=== PATIENT | female | born 1950 | race African-American/Black ===

== ENCOUNTER 2018-06-07 17:34 | Inpatient (IN) | payer MEDICARE, MEDICAID ==
[2018-06-07] MEDS ORDERED: Nitroglycerin 2% Ointment 1 INCH/1 GM Packet ONE (18:51)
[2018-06-07] MEDS ORDERED: niCARdipine 20MG In NaCl 20 MG/200 ML BAG ONE (18:51)
[2018-06-07 19:08] LABS: Amphetamine Not Detected (NotDetected); Barbiturates Screen Not Detected (NotDetected); Benzodiazepine Screen Not Detected (NotDetected); Cocaine Metabolite Screen Not Detected (NotDetected); Medtox Control Line Valid? VALID (VALID); Medtox Reader # READER 1; Methadone Not Detected (NotDetected); Methamphetamine Not Detected (NotDetected); Opiate Screen Not Detected (NotDetected); Oxycodone Screen Not Detected (NotDetected); Phencyclidine (PCP) Not Detected (NotDetected); THC/Cannabinoid Screen Not Detected (NotDetected); Tricyclic Screen Not Detected (NotDetected)
[2018-06-07] MEDS ORDERED: Ondansetron HCl/PF 4 MG/2 ML Vial IVP PRN (20:24)
[2018-06-07] MEDS ORDERED: Acetaminophen 650 MG Suppository PR PRN (20:24)
[2018-06-07] MEDS ORDERED: Scopolamine 1.5 mg/72 hour Patch TD SCH (21:00)
[2018-06-07 21:26] LABS: Troponin I Less than 0.010 ng/mL (< 0.028)
[2018-06-07 21:28] VITALS: BMI 32.7
[2018-06-07] MEDS: Nitroglycerin 2% Ointment 1 INCH/1 GM Packet TOP SCH (22:03)
[2018-06-07] MEDS: Famotidine/PF 20 mg/2ml Vial SLOW IVP SCH (22:11)
[2018-06-07] MEDS: Dextrose 5 % And 0.9 % NaCl 1,000 ML IV SCH (22:41)
[2018-06-07 23:50] LABS: Troponin I 0.011 ng/mL (< 0.028)
--- NOTE | 2018-06-08 00:19 | CON ---
CHIEF COMPLAINT: Acute stroke. HISTORY OF PRESENT ILLNESS: I was asked to consult the patient because of her aphasia. The patient's daughter and son were in the room. The patient lives in [facility] and then the patient came here to visit her family and had extended her stay. Today, she was at shinto and when she was coming out of the shinto, she was unable to talk well and she dropped her purse. She had right- sided weakness and right facial droop, and according to ER visit notes, they refused tPA in [place] and she was brought here for subsequent care. The patient has had no change in symptoms since this afternoon and continues to have aphasia. The patient's daughter states that she had a prior history of stroke. She did have some residual effects from that stroke including mild expressive aphasia and right-sided weakness. They do not think she fully recovered from that stroke. She also has additional issues including breathing problems and son thought she might have COPD and patient also has issues with her sleep. The daughter said she thinks she might have sleep apnea, because she stops to breathe sometimes at night and snores. Her new symptoms, from this morning, are primarily worsening of her speech and she did have some right- sided weakness, which has improved since arrival to the hospital. She has not had good followup where she lives. She has not gone to the [facility] for her followup care for stroke. The daughter states she thinks she might have an appointment. They also are not sure that she is compliant with her aspirin at home. PREVIOUS MEDICAL HISTORY: Two strokes are localized on the MRI. Her actual symptomatic stroke was 2 years ago with aphasia and right-sided weakness. She recovered from it, but with some residual effect. She has hypertension, hyperlipidemia, gout, and she was scheduled for a procedure for peripheral vascular disease, for stent in her legs and that was canceled this past week or so ago due to increase in her creatinine level to 1.6 according to her daughter. PAST SURGICAL HISTORY: Positive for hysterectomy, tumor removal from her stomach, nasal surgery. SOCIAL HISTORY: Patient did smoke every day until her prior stroke and she was a heavy smoker, but suddenly stopped after that stroke. Daughter thinks it could be due to her loss of taste for smoking at that point. ALLERGIES: She is allergic to ALEVE. FAMILY HISTORY: Positive for stroke in her mother. Mother also had diabetes and hypertension. MEDICATIONS: At home, amlodipine, atorvastatin, and she is on Plavix 75 mg per day, metoprolol 100 mg per day, allopurinol 100 mg per day, lisinopril 40 mg per day, tramadol 50 mg per day. REVIEW OF SYSTEMS: Difficult to obtain from the patient due to her aphasia. PHYSICAL EXAMINATION: VITAL SIGNS: Reviewed ER report, and on arrival, her blood pressure was at 165/ 100. IMAGING: CT results, CT angiography was completed here at about 03:00 in the afternoon, and there is no high-grade stenosis or occlusion of the arterial system of the head and neck. There is limited evaluation of the aortic arch due to contrast heterogeneity, and there is also calcification of origin of right vertebral artery and mild calcification of bilateral distal vertebral arteries, basilar is patent. Cervical ICA shows mild scattered calcifications, otherwise bilateral common carotids are grossly patent and M1 segments do not show any occlusive thrombus, and anterior communicating arteries are all intact. Her CT of the head did not show any acute stroke, and there is scattered vascular disease throughout her CT according to the report today, indicative of chronic ischemic disease. LABORATORY REPORT: Troponin less than 0.1. Urine drug screen was negative. White count 11.1, hemoglobin 13.7, hematocrit 37.7, platelets 960, INR 1.1, PTT 36.3, and PT 13.8. Sodium 142, potassium 4.0, chloride 107, bicarbonate 21, anion gap 18, BUN 21, creatinine 1.15, glucose 116, AST 15, ALT 11. MRI is pending at this time. PHYSICAL EXAMINATION: VITAL SIGNS: Blood pressure 145/93, pulse rate is 78, O2 sats 92. GENERAL APPEARANCE: Slightly obese lady, who is coughing constantly, and she has some difficulty staying awake, but when woken up she is very cooperative. CHEST: Clear vesicular breathing. CARDIOVASCULAR: S1 AND S2 heard, no murmurs. Carotids are clear. ABDOMEN: Soft, nontender, no organomegaly noted. NEUROLOGICAL EXAMINATION: Speech is aphasic. Higher intellectual function. She seems to follow all commands for examination appropriately, but due to expressive aphasia, we are unable to assess her orientation. Cranial nerves II- XII, normal extraocular movements. Facial asymmetry with right facial droop and aphasia and normal sensation of face, tongue midline, no atrophy noted. Normal elevation of palate. Normal hearing bilaterally. Motor exam: Bulk normal, tone normal, strength 5/5 throughout in upper and lower extremities in iliopsoas, hamstrings, quadriceps, ankle dorsiflexion, plantar flexion, deltoid , biceps, triceps, wrist extension/flexion, finger extension/flexion bilaterally. Sensory and deep tendon reflexes are absent. Sensory: Normal touch, pinprick, vibration, temperature bilaterally. Proprioception is difficult to evaluate. Cerebellar: Normal heel to ngo. Gait not tested. IMPRESSION: The patient is a 68-year-old lady with a prior history of stroke. She had aphasia with worsening of right-sided weakness this morning at shinto, but according to family, her right-sided weakness improved and she had just primarily residual aphasia. According to ER notes, apparently the patient and family refused IV tPA in [place], [place]. Her physical examination here shows expressive aphasia, but preserved strength in upper and lower extremities bilaterally. She also has a cough, unclear whether she has underlying chronic obstructive pulmonary disease plus sleep apnea, which needs to be investigated further, and family reports she also has peripheral vascular disease. She was scheduled for stent procedure, which was canceled due to elevated creatinine. Her laboratory workup is abnormal with elevated platelet count of 960, and she had mild abnormalities of her creatinine as well and further workup is still pending. Her CT angiogram is negative. CT of the head shows chronic microvascular ischemic changes. Current diagnosis is most consistent with acute stroke in the same distribution as her prior stroke. This could mean either worsening of her preexisting stroke due to other medical issues versus another neurological event in the same vascular distribution. RECOMMENDATIONS: MRI of the brain, echocardiogram, and carotid Doppler and please evaluate if the patient has any thrombocythemia or hypercoagulable state. Please add aspirin to her treatment regimen in addition to Plavix. Maintain blood pressure within stroke parameters for tonight and follow acute stroke non-tPA protocol, and I will request Neurology to follow the patient with you tomorrow. [facility]
[2018-06-08] MEDS: Albuterol Sulfate 2.5 mg/3 ml Neb NEB SCH ×4 (00:28→19:08)
--- NOTE | 2018-06-08 00:56 | HP ---
REASON FOR ADMISSION: Hypertensive emergency, acute cerebrovascular accident, aphasia. HISTORY OF PRESENT ILLNESS: Please note majority of this history is obtained by talking to patient's cousin two of them at bedside who witnessed what happened at home. The patient is aphasic and is not fully oriented at present. She had come back from [place] along with the two cousins. The patient suddenly dropped her purse and stood silently. She could not talk. Finally, the cousin's managed to take her home and thought that she did not eat in the morning, so they fed her. She sat in a recliner with legs up to increase circulation, but none of this helped her. She still could not talk and she was taken to [facility] from where she was transferred here. The patient is essentially from [place] and is here for family reunion. She is left-handed person. She has had two prior strokes with right-sided weakness before. Per family, the patient ambulates by herself without any assistive devices. On arrival, the patient had systolic blood pressures more than 200 and was started on Cardene drip. She has had a CT angio brain done which did not reveal any acute infarct. PAST MEDICAL AND SURGICAL HISTORY: History of prior CVA x2 with right-sided weakness, hypotension, dyslipidemia, gout, peripheral vascular disease, plans for placing stent in her lower extremity, history of chronic kidney disease. CURRENT MEDICATIONS: The patient is on allopurinol 100 mg p.o. daily, Plavix 75 mg p.o. daily, Norvasc 10 mg p.o. daily, Lipitor 40 mg p.o. daily, Lopressor extended release 100 mg p.o. daily, lisinopril 40 mg p.o. daily, Ultram p.r.n. ALLERGIES: Allergic to ALEVE. PERSONAL HISTORY: Quit smoking two years back, prior to which has smoked 2 packs a day for a number of years. Does not abuse alcohol or drugs. FAMILY HISTORY: Both parents in their 60s from unclear reasons. Had an older brother who 2 weeks back from pancreatic cancer. He also had a pacemaker. He was 73 years old. The patient had a twin who of lung cancer at the age of 65 years. CODE STATUS: FULL. Power of tax attorney is her daughter, Ms. Bergman, number to reach her is [phone]. REVIEW OF SYSTEMS: Cannot be obtained as patient is not oriented. PHYSICAL EXAMINATION: GENERAL: The patient is a 68-year-old female who is currently in distress as she is unable to communicate. VITAL SIGNS: Blood pressure on arrival in [facility] was 224/145, currently it is 160/100 on Cardene drip, pulse 88 per minute, respiratory rate 24 per minute, temperature 98 degrees Fahrenheit, saturating 94% on room air. NECK: Supple. There is elevated JVD. HEENT: Eyes: Extraocular muscles intact. Pupils reacting to light. Oral cavity: Mucous membranes are dry. Looks like patient cannot clear her throat secretions with gurgling noises at bedside. CARDIOVASCULAR SYSTEM: S1, S2 heard. Regular rhythm. RESPIRATORY SYSTEM: Air entry 1+ bilateral. Scattered rales in the basilar area. No wheezes. Rhonchi is heard. ABDOMEN: Soft, bowel sounds heard. No tenderness, rigidity, or guarding. EXTREMITIES: No peripheral edema or calf tenderness. VASCULAR SYSTEM: Peripheral pulses 1+ bilateral, no ischemic ulcerations or gangrene. CENTRAL NERVOUS SYSTEM: The patient appears to have some loss of nasolabial fold on the left. She has aphasia, dysarthria. Motor system: Strength is 3/5 in the right extremities and 4/5 in the left extremities. Reflexes are 2+ bilateral. Babinski is equivocal. Cerebellar signs could not be tested as patient has underlying confusion at present. PSYCHIATRIC SYSTEM: Could not be ascertained as the patient is not oriented and is confused at present. LABORATORY AND X-RAY FINDINGS: White count of 11, H&H 13 and 37, platelet count 960, MCV is 76 with 75% neutrophils. PT and INR 13 and 1.1, PTT 36. Serum bicarbonate 21, BUN 21, creatinine 1.1, serum glucose 116. Troponin x2 negative. CK-MB 0.9. CK level is 59. Liver enzymes within normal limits. Albumin is 4.2. Urine drug screen is negative. CT angio brain done shows no high-grade stenosis or occlusion of the arterial system of the head and neck. Scattered vascular disease is present, not typical for patient's age. CT brain shows chronic ischemic disease, no acute intracranial hemorrhage or mass effect. There is old left centrum semiovale CVA seen. There is also a small area of encephalomalacia of the posterior left parietal lobe. EKG done shows normal sinus rhythm at 77 beats per minute. There are T inversions seen in V2- V6. CLINICAL IMPRESSION AND PLAN: The patient will be admitted to ICU for hypertensive emergency, acute cerebrovascular accident, aphasia, dysarthria. We will continue her on Cardene drip. Oral medications will be avoided for now as the patient is unable to clear her throat secretions. She is able to maintain her airway as of now with good saturations. Aspiration precautions will be followed. The patient is allergic to ALEVE and likely is not on aspirin , but we will continue her on Plavix. We will also place her on nitro paste half inch q. 8 hourly. Scopolamine transdermal patch. Albuterol nebulizer q.6 hourly to keep the airway and with a prior history of heavy smoking. Echo with 2D Doppler will be obtained for left ventricular function and to rule out thrombus, MRI brain without contrast in the morning. Neurology consultation with Dr. Rider, whom I have discussed with clinical findings and lab reports. Speech, physical therapy and OT evaluations in the morning. Code status was discussed with the patient's daughter, Ms. Bergman and patient is a FULL CODE for now. If needed, she will be intubated to maintain her airway. We will see her clinical progress with hypertension being controlled in the morning. The patient's platelet count is nearly 960 and the family is not aware of this in the past. We will obtain a repeat CBC and if it is still high do further tests towards the same. [facility]
[2018-06-08 05:30] LABS: Anion Gap 13 mmol/L (10-20); BUN (Urea Nitrogen) 15 mg/dL (9.8-20.1); Calc. Creatinine Clearance 70 mL/min (70-130); Calcium 9.6 mg/dL (7.8-10.44); Carbon Dioxide 22 mmol/L (23-31); Cardiac Risk 3.5 (Less than 4.5); Chloride 109 mmol/L (98-107); Cholesterol 123 mg/dl (< 200 Desired); Estimated GFR-MDRD 65; Glucose 98 mg/dL (80-115); HDL Cholesterol 35 mg/dL (>60 Neg Risk); LDL Cholesterol, Calculated 72 mg/dL; Potassium 3.7 mmol/L (3.5-5.1); Sodium 140 mmol/L (136-145); Triglycerides 80 mg/dL (Less than 150)
[2018-06-08 05:53] LABS: Platelet Count 903 thou/uL (130-400)
[2018-06-08] MEDS: Nitroglycerin 2% Ointment 1 INCH/1 GM Packet TOP SCH (06:00)
[2018-06-08 06:47] LABS: #Basophils 0.1 thou/uL (0.0-0.2); #Eosinphils 0.3 thou/uL (0.0-0.7); #Lymphocytes 2.4 thou/uL (1.20-3.40); #Monocytes 0.8 thou/uL (0.11-0.59); #Neutrophils 7.5 thou/uL (1.40-6.50); %Basophils 1.1 % (0.0-1.0); %Eosinophils 2.3 % (0.0-10.0); %Lymphocytes 21.5 % (21.0-51.0); %Monocytes 7.2 % (0.0-10.0); Hemoglobin 12.8 g/dL (12.0-16.0); Mean Corpuscular HGB CONC 34.4 g/dL (32.0-36.0); Mean Corpuscular Hemoglobin 28.5 pg (27.0-31.0); Mean Platelet Volume 7.3 fL (7.4-10.4); PLT Morphology Comment Appears Increased; RBC Distribution Width 14.1 % (11.5-14.5); Red Blood Cell (RBC) Count 4.48 mill/uL (4.20-5.40); White Blood Cell (WBC) Count 11.1 thou/uL (4.8-10.8)
--- NOTE | 2018-06-08 08:40 | CON ---
DATE OF CONSULTATION: 06/08/2018 REASON FOR CONSULTATION: Stroke and hypertensive emergency. This consult encompassed 70 minutes of time. Of that time greater than 57% spent with the patient an d/or on the patient unit in the hospital. HISTORY OF PRESENT ILLNESS: This is a 68-year-old female who was admitted to the Hospitalist Service yesterday. She had been down here from [place] attending a family reunion in [place]. She appa rently became aphasic and could not talk. She was found to have systolic pressure greater than 200. She was brought in and placed on a Cardene drip. This morning I can get her to wake up. She can st ate her name, why she is down here and can answer simple questions. PAST MEDICAL HISTORY: 1. Two previous strokes with right-sided weakness in the past. 2. Hypertension. 3. Hyperlipidemia. 4. Gout. 5. Peripheral vascular disease. 6. Chronic kidney disease. PAST SURGICAL HISTORY: None reported. MEDICATIONS PRIOR TO ADMISSION: Allopurinol, Plavix, Norvasc, Lipitor, Lopressor, lisinopril and Ult mariama. ALLERGIES: ALEVE. SOCIAL HISTORY: Quit smoking 2 years ago, previously smoked 2 packs per day. Does not consume alcoh ol, does not use illicit drugs. FAMILY MEDICAL HISTORY: Remarkable for pancreatic cancer, cardiac disease and lung cancer. REVIEW OF SYSTEMS: Twelve point review of systems otherwise negative. PHYSICAL EXAMINATION: VITAL SIGNS: Temperature 98.7, pulse 84, blood pressure 137/100, O2 sat 95% on room air. Total inta ke for 24 hours 1074, output 1550. NEUROLOGIC: Cranial nerves II-XII are intact except for slight right-sided facial droop cranial nerv e VII. She has full sensation intact throughout. Motor strength is 5/5 throughout and she is now ab le to talk without much limitation. HEENT: Otherwise, unremarkable. NECK: Without adenopathy or JVD. LUNGS: Clear without wheezing or rhonchi. CARDIAC: S1, S2 regular, without murmur. ABDOMEN: Soft, nontender, nondistended. EXTREMITIES: No clubbing, cyanosis, or edema. LABORATORY DATA: White blood cell count 11, hematocrit 37, platelet count 903. Sodium 140, potassiu m 3.7, chloride 109, CO2 of 22, BUN 15, creatinine 1.0. Tox screen was negative. ASSESSMENT: 1. Acute cerebrovascular accident as manifested by expressive aphasia. 2. Hypertensive emergency, at the time of admission. 3. Severe elevation of platelet count. RECOMMENDATIONS: 1. Agree with Speech Therapy consult. If they deem she is okay to swallow that she should be starte d on oral antihypertensive. 2. Consider Hematology consult for elevated platelet count to make sure she does not have essential thrombocytosis leading to hypercoagulable state. 3. Once she is off the nicardipine drip then she should be stable to go to the floor.
[2018-06-08] MEDS: Enoxaparin Sodium 40 MG/0.4 ML SYRINGE SC SCH (09:43)
[2018-06-08] MEDS: Clopidogrel Bisulfate 75 MG TAB PO SCH (09:43)
[2018-06-08] MEDS: Famotidine/PF 20 mg/2ml Vial SLOW IVP SCH (09:44)
[2018-06-08] MEDS ORDERED: Metoprolol Tartrate 50 MG TAB PO SCH (11:30)
[2018-06-08] MEDS ORDERED: Amlodipine 10 MG TAB PO SCH (11:30)
--- NOTE | 2018-06-08 11:52 | PDOC.PN ---
- Subjective Encounter Start Date: 06/08/18 Encounter Start Time: 10:00 Subjective: awake, still has dysarthria and aphasia -: moves all extremities, is more awake -: no headache or chest pain, follows verbal stimuli - Objective Resuscitation Status: Resuscitation Status FULL:Full Resuscitation MAR Reviewed: Yes Vital Signs & Weight: Vital Signs (12 hours) Temp Pulse Resp BP Pulse Ox 06/08/18 11:30 71 164/11 H 06/08/18 08:00 98.3 F 71 11 L 96 06/08/18 06:50 76 12 96 06/08/18 04:00 98.7 F 06/08/18 00:28 79 14 95 06/08/18 00:00 98.9 F Weight Weight 184 lb 11.958 oz Most Recent Monitor Data Heart Rate from ECG 71 NIBP 148/89 NIBP BP-Mean 105 Respiration from ECG 17 SpO2 97 I&O: 06/07/18 06/08/18 06/09/18 06:59 06:59 06:59 Intake Total 1074 Output Total 1550 525 Balance -476 -525 Result Diagrams: 06/08/18 04:41 06/08/18 04:41 Phys Exam - Physical Examination HEENT: PERRLA, moist MMs Neck: no JVD, supple Respiratory: no wheezing, no rales Cardiovascular: RRR, no significant murmur Gastrointestinal: soft, non-tender, positive bowel sounds Musculoskeletal: no edema, pulses present Neurological: moves all 4 limbs aphasia, dysarthria, mild right hemiparesis Psychiatric: A&O x 3 Dx/Plan (1) Acute CVA (cerebrovascular accident) Code(s): I63.9 - CEREBRAL INFARCTION, UNSPECIFIED Status: Acute (2) Aphasia Code(s): R47.01 - APHASIA Status: Acute (3) Hypertensive emergency Code(s): I16.1 - HYPERTENSIVE EMERGENCY Status: Resolved (4) Dyslipidemia Code(s): E78.5 - HYPERLIPIDEMIA, UNSPECIFIED Status: Chronic (5) PVD (peripheral vascular disease) Code(s): I73.9 - PERIPHERAL VASCULAR DISEASE, UNSPECIFIED Status: Chronic (6) H/O: CVA (cerebrovascular accident) Code(s): Z86.73 - PRSNL HX OF TIA (TIA), AND CEREB INFRC W/O RESID DEFICITS Status: Chronic Comment: with right sided weakness in the past - Plan speech has cleared her, will start oral meds -: await mri and echo results -: on plavix, lipitor, lopressor, norvasc and lisinopril -: may tx to stroke floor -: onc opinion reg thrombocytosis * . Review of Systems - Medications/Allergies Allergies/Adverse Reactions: Allergies Allergy/AdvReac Type Severity Reaction Status Date / Time naproxen [From Aleve] Allergy Verified 06/07/18 20:29 Medications: Current Medications Acetaminophen (Tylenol) 650 mg PO Q4H PRN PRN Reason: Headache/Fever or Pain Acetaminophen (Tylenol) 650 mg OR Q4H PRN PRN Reason: Headache/Fever or Pain Albuterol Sulfate (Ventolin) 2.5 mg NEB T1IC-CL [facility] Last Admin: 06/08/18 06:50 Dose: 2.5 mg Allopurinol (Zyloprim) 100 mg PO DAILY [facility] Amlodipine Besylate (Norvasc) 10 mg PO DAILY [facility] Amlodipine Besylate (Norvasc) 10 mg PO NOW [facility] Stop: 06/08/18 13:30 Last Admin: 06/08/18 11:30 Dose: 10 mg Atorvastatin Calcium (Lipitor) 40 mg PO DAILY [facility] Clopidogrel Bisulfate (Plavix) 75 mg PO DAILY [facility] Last Admin: 06/08/18 09:43 Dose: 75 mg Enoxaparin Sodium (Lovenox) 40 mg SC 0900 [facility] Last Admin: 06/08/18 09:43 Dose: 40 mg Famotidine (Pepcid) 20 mg PO Q12HR [facility] Dextrose/Sodium Chloride (D5 0.9% Ns) 1,000 mls @ 50 mls/hr IV .Q20H [facility] Last Admin: 06/07/18 22:41 Dose: 1,000 mls Lisinopril (Zestril) 40 mg PO DAILY [facility] Metoprolol Tartrate (Lopressor) 50 mg PO BID [facility] Metoprolol Tartrate (Lopressor) 50 mg PO NOW [facility] Stop: 06/08/18 13:30 Last Admin: 06/08/18 11:30 Dose: 50 mg Ondansetron HCl (Zofran) 4 mg IVP Q6H PRN PRN Reason: Nausea/Vomiting
[2018-06-08] MEDS: Acetaminophen 325 MG TAB PO PRN (12:53)
--- NOTE | 2018-06-08 14:04 | MRI ---
MRI BRAIN WITHOUT CONTRAST: Date: 06/08/18 HISTORY: Stroke. FINDINGS: There are areas of restricted diffusion in the left cerebral and cerebellar hemispheres. No hydroceph alus is seen. There is foci of T2 prolongation in the periventricular white matter consistent with ch ronic small vessel ischemic disease. No hemorrhage, midline shift, or abnormal extra-axial fluid janene ections are seen. IMPRESSION: Acute infarctions in the left cerebral and cerebellar hemispheres. POS: C
[2018-06-08] MEDS: Dextrose 5 % And 0.9 % NaCl 1,000 ML IV SCH (18:16)
[2018-06-08] MEDS: Metoprolol Tartrate 50 MG TAB PO SCH (20:26)
[2018-06-08] MEDS: Famotidine 20 MG TAB PO SCH (20:27)
[2018-06-08] MEDS ORDERED: Famotidine 20 MG TAB PO SCH (21:00)
--- NOTE | 2018-06-08 22:08 | CON ---
DATE OF CONSULTATION: 06/08/2018 REASON FOR CONSULTATION: Thrombocytosis. HISTORY OF PRESENT ILLNESS: Ms. Chowdhury is a 68-year-old -Cym[place] female who presented to [facility] emergency room with altered mental status. She was aphasic and had some right facial droop. Sasha valverde has a history of CVA with right-sided weakness. Last CVA was approximately [address] s can done in the emergency room showed no acute process. She had an MRI at this facility which showed acute infarctions in the left cerebral and cerebellar hemispheres. The patient's blood pressure was elevated on arrival and she was on a Cardene drip briefly. Labs drawn showed a white count of 11.1, hemoglobin of 12.8 and platelet count of 903,000. She has 68% neutrophils and 21% lymphocytes. The patient has a history of peripheral vascular disease and was having a femoral bypass and had a femor al bypass scheduled for last week. Her routine labs done during workup showed an elevated creatinine of 1.6, so she was unable to have the procedure. It was rescheduled for later in the week. She sta valdez she has no history of elevated platelets. No family history of clotting disorder she is aware of . History was obtained from the patient and her 3 children at bedside. PAST MEDICAL HISTORY: 1. CVA x2 with right-sided weakness and speech difficulty. 2. Hypertension. 3. Dyslipidemia. 4. Gout. 5. Peripheral vascular disease. 6. Chronic kidney disease. PAST SURGICAL HISTORY: None, we planned a stent in her lower extremity. ALLERGIES: ALEVE. HOME MEDICATIONS: 1. Allopurinol 100 mg daily. 2. Norvasc 10 mg daily. 3. Atorvastatin 40 mg daily. 4. Plavix 75 mg daily. 5. Lisinopril 40 mg daily. 6. Metoprolol succinate 100 mg daily. 7. Tramadol 50 mg p.r.n. FAMILY HISTORY: Positive for lung cancer and pancreatic cancer. SOCIAL HISTORY: She is single. She lives with her boyfriend and another friend in [place]. She is here visiting for a family reunion. Denies any alcohol, tobacco or illicit drug use. She quit sm oking approximately 3 years ago. REVIEW OF SYSTEMS: Twelve point review of systems is negative. PHYSICAL EXAMINATION: VITAL SIGNS: Temperature 98.0, pulse is 68, respiratory rate 21, BP is 150/98. GENERAL: This is an obese -Cymro female in no acute distress. HEENT: Normocephalic, atraumatic. Pupils are equal and reactive to light. She has poor dentition. NECK: Supple. CARDIOVASCULAR: Regular rate and rhythm. LUNGS: Clear to auscultation. ABDOMEN: Obese, nontender, bowel sounds are positive. EXTREMITIES: No clubbing, cyanosis or edema. SKIN: No rash. HEMATOLOGIC: No petechia or purpura. NEUROLOGIC: Patient has expressive aphasia with right facial droop. PERTINENT LABORATORY DATA AND IMAGING DATA: Current WBCs are 11.1, hemoglobin 12.8, hematocrit 37.2 and platelet count is 903,000. Sodium is 140, potassium 3.7, chloride 109, CO2 is 22, BUN is 15, cre atinine 1.02 and calcium is 9.6. Troponin is negative. Radiology per HPI. IMPRESSION: 1. Acute cerebrovascular accident. 2. Thrombocytosis. 3. History of peripheral vascular disease. 4. Chronic kidney disease. DISCUSSION: The patient has been evaluated by Neurology. She will be given stroke rehabilitation so on. There is no history of that she is aware of elevated platelets. I suspect given the extremely h igh platelets, this is a primary thrombocytosis. I will check JAK2 mutation. We will recheck a CBC in a.m. and begin hydroxyurea tomorrow if they have remained in this high. She will have to follow u p with her primary care physician in the outpatient setting to monitor the hydroxyurea closely. The risks and benefits were discussed with the patient and the family. Thank you for the consult. We will follow her hospital course closely.
[2018-06-09] MEDS: Albuterol Sulfate 2.5 mg/3 ml Neb NEB SCH ×4 (00:21→19:02)
[2018-06-09 05:12] LABS: #Basophils 0.1 thou/uL (0.0-0.2); #Eosinphils 0.4 thou/uL (0.0-0.7); #Monocytes 0.8 thou/uL (0.11-0.59); #Neutrophils 6.7 thou/uL (1.40-6.50); %Eosinophils 4.1 % (0.0-10.0); %Lymphocytes 20.3 % (21.0-51.0); %Monocytes 7.6 % (0.0-10.0); %Neutrophils 67.1 % (42.0-75.0); Hemoglobin 12.8 g/dL (12.0-16.0); Mean Corpuscular HGB CONC 35.3 g/dL (32.0-36.0); Mean Corpuscular Hemoglobin 29.1 pg (27.0-31.0); Mean Corpuscular Volume 82.4 fL (78.0-98.0); Mean Platelet Volume 7.5 fL (7.4-10.4); Platelet Count 963 thou/uL (130-400); RBC Distribution Width 14.4 % (11.5-14.5)
[2018-06-09] MEDS ORDERED: Amlodipine 10 MG TAB PO SCH (09:00)
[2018-06-09] MEDS: Atorvastatin Calcium 40 MG TAB PO SCH (09:35)
[2018-06-09] MEDS: Lisinopril 20 MG TAB PO SCH (09:35)
[2018-06-09] MEDS: Allopurinol 100 MG TAB PO SCH (09:36)
[2018-06-09] MEDS: Clopidogrel Bisulfate 75 MG TAB PO SCH (09:36)
[2018-06-09] MEDS: Metoprolol Tartrate 50 MG TAB PO SCH ×2 (09:37→21:11)
[2018-06-09] MEDS: Acetaminophen 325 MG TAB PO PRN ×3 (09:38→19:41)
[2018-06-09] MEDS: Enoxaparin Sodium 40 MG/0.4 ML SYRINGE SC SCH (09:38)
--- NOTE | 2018-06-09 12:08 | PDOC.PN ---
- Subjective Encounter Start Date: 06/09/18 Encounter Start Time: 09:50 Subjective: is awake and oriented, still has difficulty articulating and finding words -: moves all extremities -: all her 3 children are at bedside - Objective Resuscitation Status: Resuscitation Status FULL:Full Resuscitation MAR Reviewed: Yes Vital Signs & Weight: Vital Signs (12 hours) Temp Pulse Pulse Pulse Resp BP BP 06/09/18 11:35 98.7 F 59 L 18 06/09/18 09:36 71 174/115 H 06/09/18 09:35 174/115 H 06/09/18 09:08 71 66 174/115 H 06/09/18 07:55 70 14 06/09/18 07:38 98.9 F 76 24 H 06/09/18 07:05 73 74 173/100 H 06/09/18 03:37 98.2 F 73 20 06/09/18 00:21 56 L 18 BP BP Pulse Ox 06/09/18 11:35 152/89 H 96 06/09/18 09:36 06/09/18 09:35 06/09/18 09:08 153/85 H 06/09/18 07:55 06/09/18 07:38 159/112 H 96 06/09/18 07:05 157/98 H 06/09/18 03:37 170/96 H 96 06/09/18 00:21 96 Weight Weight 184 lb 11.958 oz Most Recent Monitor Data Heart Rate from ECG 68 NIBP 153/97 NIBP BP-Mean 121 Respiration from ECG 14 SpO2 93 I&O: 06/08/18 06/09/18 06/10/18 06:59 06:59 06:59 Intake Total 1074 1346 Output Total 1550 775 Balance -476 571 Result Diagrams: 06/09/18 04:18 06/08/18 04:41 Phys Exam - Physical Examination HEENT: PERRLA, moist MMs Neck: no JVD, supple Respiratory: no wheezing, no rales Cardiovascular: RRR, no significant murmur Gastrointestinal: soft, non-tender, positive bowel sounds Musculoskeletal: no edema, pulses present Neurological: moves all 4 limbs baseline aphasia and dysarthria with slight worsoning per children Psychiatric: normal affect, A&O x 3 Dx/Plan (1) Acute CVA (cerebrovascular accident) Code(s): I63.9 - CEREBRAL INFARCTION, UNSPECIFIED Status: Acute Comment: ac left cerebral and cerebellar cva (2) Aphasia Code(s): R47.01 - APHASIA Status: Acute (3) Hypertensive emergency Code(s): I16.1 - HYPERTENSIVE EMERGENCY Status: Resolved (4) Dyslipidemia Code(s): E78.5 - HYPERLIPIDEMIA, UNSPECIFIED Status: Chronic (5) PVD (peripheral vascular disease) Code(s): I73.9 - PERIPHERAL VASCULAR DISEASE, UNSPECIFIED Status: Chronic (6) H/O: CVA (cerebrovascular accident) Code(s): Z86.73 - PRSNL HX OF TIA (TIA), AND CEREB INFRC W/O RESID DEFICITS Status: Chronic Comment: with right sided weakness in the past - Plan echo shows good ef, no obvious thrombus -: needs close f/u with a hemeonc in [facility] -: may dc to rehab anytime if she is accepted -: d/w children at bedside -: continue norvasc, lisinopril, lopressor, plavix and lipitor * . Review of Systems - Medications/Allergies Allergies/Adverse Reactions: Allergies Allergy/AdvReac Type Severity Reaction Status Date / Time naproxen [From Aleve] Allergy Verified 06/07/18 20:29 Medications: Current Medications Acetaminophen (Tylenol) 650 mg PO Q4H PRN PRN Reason: Headache/Fever or Pain Last Admin: 06/09/18 09:38 Dose: 650 mg Acetaminophen (Tylenol) 650 mg [place] Q4H PRN PRN Reason: Headache/Fever or Pain Albuterol Sulfate (Ventolin) 2.5 mg NEB [id number] [facility] Last Admin: 06/09/18 07:55 Dose: 2.5 mg Allopurinol (Zyloprim) 100 mg PO DAILY [facility] Last Admin: 06/09/18 09:36 Dose: 100 mg Amlodipine Besylate (Norvasc) 10 mg PO DAILY [facility] Last Admin: 06/09/18 09:36 Dose: 10 mg Atorvastatin Calcium (Lipitor) 40 mg PO DAILY [facility] Last Admin: 06/09/18 09:35 Dose: 40 mg Clopidogrel Bisulfate (Plavix) 75 mg PO DAILY [facility] Last Admin: 06/09/18 09:36 Dose: 75 mg Enoxaparin Sodium (Lovenox) 40 mg SC 0900 [facility] Last Admin: 06/09/18 09:38 Dose: 40 mg Famotidine (Pepcid) 20 mg PO 2100 [facility] Last Admin: 06/08/18 20:27 Dose: 20 mg Dextrose/Sodium Chloride (D5 0.9% Ns) 1,000 mls @ 50 mls/hr IV .Q20H [facility] Last Admin: 06/08/18 18:16 Dose: 1,000 mls Lisinopril (Zestril) 40 mg PO DAILY [facility] Last Admin: 06/09/18 09:35 Dose: 40 mg Metoprolol Tartrate (Lopressor) 50 mg PO BID [facility] Last Admin: 06/09/18 09:37 Dose: 50 mg Ondansetron HCl (Zofran) 4 mg IVP Q6H PRN PRN Reason: Nausea/Vomiting
[2018-06-09] MEDS ORDERED: Hydroxyurea 500 MG CAP PO SCH (12:30)
[2018-06-09] MEDS ORDERED: cloNIDine 0.1 MG TAB PO PRN (16:55)
[2018-06-09] MEDS ORDERED: NIFEdipine XL 60 MG TAB PO SCH (17:00)
[2018-06-09] MEDS: Dextrose 5 % And 0.9 % NaCl 1,000 ML IV SCH (18:32)
[2018-06-09] MEDS: Famotidine 20 MG TAB PO SCH (21:11)
[2018-06-10] MEDS: Albuterol Sulfate 2.5 mg/3 ml Neb NEB SCH ×4 (00:09→18:29)
[2018-06-10 05:29] LABS: Platelet Count 988 thou/uL (130-400)
[2018-06-10 06:32] LABS: #Basophils 0.1 thou/uL (0.0-0.2); #Eosinphils 0.4 thou/uL (0.0-0.7); #Lymphocytes 2.2 thou/uL (1.20-3.40); #Monocytes 0.7 thou/uL (0.11-0.59); #Neutrophils 6.9 thou/uL (1.40-6.50); %Basophils 0.8 % (0.0-1.0); %Eosinophils 4.3 % (0.0-10.0); %Lymphocytes 20.9 % (21.0-51.0); %Monocytes 6.8 % (0.0-10.0); %Neutrophils 67.2 % (42.0-75.0); Band 1 % (5-11); Eosinophils 3 % (0-10); Hemoglobin 12.4 g/dL (12.0-16.0); Lymphocytes 22 % (21-51); MDiff Complete? YES; Mean Corpuscular Hemoglobin 28.2 pg (27.0-31.0); Mean Corpuscular Volume 82.8 fL (78.0-98.0); Monocytes 3 % (0-10); Neutrophil 71 % (42-75); White Blood Cell (WBC) Count 10.3 thou/uL (4.8-10.8)
[2018-06-10] MEDS ORDERED: Hydroxyurea 500 MG CAP PO SCH (09:00)
[2018-06-10] MEDS ORDERED: NIFEdipine XL 60 MG TAB PO SCH (09:00)
[2018-06-10] MEDS: Lisinopril 20 MG TAB PO SCH (09:40)
[2018-06-10] MEDS: Allopurinol 100 MG TAB PO SCH (09:40)
[2018-06-10] MEDS: Enoxaparin Sodium 40 MG/0.4 ML SYRINGE SC SCH (09:40)
[2018-06-10] MEDS: Clopidogrel Bisulfate 75 MG TAB PO SCH (09:41)
[2018-06-10] MEDS: Metoprolol Tartrate 50 MG TAB PO SCH (09:41)
[2018-06-10] MEDS: Atorvastatin Calcium 40 MG TAB PO SCH (09:41)
[2018-06-10 12:48] LABS: ANA Symphony (Qualitative) Negative (Negative); dsDNA IgG Antibody 2.7 IU/mL (<10 Negative)
--- NOTE | 2018-06-10 14:21 | PDOC.PN ---
- Subjective Encounter Start Date: 06/10/18 Encounter Start Time: 07:00 Pt seen for followup re: ischemic CVA. Has difficulty finding words, unable to complete ROS. - Objective Resuscitation Status: Resuscitation Status FULL:Full Resuscitation MAR Reviewed: Yes Vital Signs & Weight: Vital Signs (12 hours) Temp Pulse Pulse Pulse Resp BP BP 06/10/18 13:11 66 18 06/10/18 11:39 98.3 F 58 L 24 H 06/10/18 09:41 67 155/86 H 06/10/18 09:40 155/86 H 06/10/18 09:05 78 73 139/99 H 06/10/18 08:24 98.3 F 67 24 H 06/10/18 07:49 98.3 F 67 24 H 06/10/18 06:42 06/10/18 06:40 73 16 06/10/18 04:35 98 F 73 20 BP BP Pulse Ox 06/10/18 13:11 94 L 06/10/18 11:39 135/83 98 06/10/18 09:41 06/10/18 09:40 06/10/18 09:05 141/79 H 06/10/18 08:24 96 06/10/18 07:49 155/86 H 96 06/10/18 06:42 96 06/10/18 06:40 96 06/10/18 04:35 140/94 H 91 L Weight Admit Weight 184 lb 11.958 oz Weight 184 lb 11.958 oz Most Recent Monitor Data Heart Rate from ECG 68 NIBP 153/97 NIBP BP-Mean 121 Respiration from ECG 14 SpO2 93 I&O: 06/09/18 06/10/18 06/11/18 06:59 06:59 06:59 Intake Total 1346 550 Output Total 775 Balance 571 550 Result Diagrams: 06/10/18 04:38 06/08/18 04:41 EKG Reviewed by me: Yes (Tele: NSR) Phys Exam - Physical Examination Constitutional: NAD HEENT: moist MMs Neck: supple Respiratory: clear to auscultation bilateral Cardiovascular: RRR Gastrointestinal: soft Neurological: moves all 4 limbs aphasia Psychiatric: normal affect Skin: no rash Dx/Plan (1) Acute CVA (cerebrovascular accident) Code(s): I63.9 - CEREBRAL INFARCTION, UNSPECIFIED Status: Acute Comment: continue Plavix and Lipitor (2) Aphasia Code(s): R47.01 - APHASIA Status: Acute Comment: continue Plavix and Lipitor (3) Thrombocythemia Status: Acute Comment: started on hydroxyurea (4) Dyslipidemia Code(s): E78.5 - HYPERLIPIDEMIA, UNSPECIFIED Status: Chronic Comment: continue statin (5) PVD (peripheral vascular disease) Code(s): I73.9 - PERIPHERAL VASCULAR DISEASE, UNSPECIFIED Status: Chronic Comment: continue Plavix and Lipitor - Plan PT/OT, out of bed/ambulate * . awaiting Rehab bed Review of Systems - Medications/Allergies Allergies/Adverse Reactions: Allergies Allergy/AdvReac Type Severity Reaction Status Date / Time naproxen [From Aleve] Allergy Verified 06/07/18 20:29 Medications: Current Medications Acetaminophen (Tylenol) 650 mg PO Q4H PRN PRN Reason: Headache/Fever or Pain Last Admin: 06/09/18 19:41 Dose: 650 mg Acetaminophen (Tylenol) 650 mg ID Q4H PRN PRN Reason: Headache/Fever or Pain Albuterol Sulfate (Ventolin) 2.5 mg NEB [id number] [facility] Last Admin: 06/10/18 13:11 Dose: 2.5 mg Allopurinol (Zyloprim) 100 mg PO DAILY [facility] Last Admin: 06/10/18 09:40 Dose: 100 mg Atorvastatin Calcium (Lipitor) 40 mg PO DAILY [facility] Last Admin: 06/10/18 09:41 Dose: 40 mg Clonidine (Catapres) 0.1 mg PO Q4H PRN PRN Reason: sbp>180 Clopidogrel Bisulfate (Plavix) 75 mg PO DAILY [facility] Last Admin: 06/10/18 09:41 Dose: 75 mg Enoxaparin Sodium (Lovenox) 40 mg SC 0900 [facility] Last Admin: 06/10/18 09:40 Dose: 40 mg Famotidine (Pepcid) 20 mg PO 2100 [facility] Last Admin: 06/09/18 21:11 Dose: 20 mg Hydroxyurea (Hydrea) 500 mg PO DAILY [facility] Last Admin: 06/10/18 09:40 Dose: 500 mg Lisinopril (Zestril) 40 mg PO DAILY [facility] Last Admin: 06/10/18 09:40 Dose: 40 mg Metoprolol Tartrate (Lopressor) 50 mg PO BID [facility] Last Admin: 06/10/18 09:41 Dose: 50 mg Nifedipine (Procardia Xl) 60 mg PO DAILY [facility] Last Admin: 06/10/18 09:41 Dose: 60 mg Ondansetron HCl (Zofran) 4 mg IVP Q6H PRN PRN Reason: Nausea/Vomiting
[2018-06-10 16:20] VITALS: BP 140/86; TEMP 97.8
--- NOTE | 2018-06-11 02:01 | DIS ---
PRIMARY CARE PROVIDER: Dr. Elli Nation from [place]. DATE OF ADMISSION: 06/07/2018 DATE OF DISCHARGE: 06/10/2018 DISCHARGE DIAGNOSES: 1. Acute ischemic cerebrovascular accident. 2. Aphasia. 3. Thrombocythemia. 4. Hypertensive emergency. CONDITION OF PATIENT ON THE DAY OF DISCHARGE: Stable. I assessed Mr. Chowdhury on the day of discharg e. Please refer to my daily progress note for further details regarding this [id number] encounter. CONSULTATIONS DURING THIS HOSPITALIZATION: Neurology, Dr. Rider and Pulmonary Critical Care Medicin e, Dr. Stalin Ferraro and, Oncology, Bisi Quintanilla. DISCHARGE MEDICATIONS: Allopurinol 100 mg daily, atorvastatin 40 mg daily, Plavix 75 mg daily, Anna xyurea 500 mg daily, lisinopril 40 mg daily, Lopressor 50 mg 2 times a day Procardia-XL 60 mg daily, and amlodipine 10 mg daily. HOSPITAL COURSE: Mr. Chowdhury is a pleasant 68-year-old lady who was admitted to [facility] on 06/07/2018 for acute ischemic cerebrovascular accident. Please refer Dr. Kyle coronado's history and physical note from 06/07/2018 for further details. MRI of the brain on 06/08/2018 sh owed acute infarctions in the left cerebellar and cerebellar hemispheres. She also was in hypertensive emergency and received antihypertensives. She was seen by Hematology/Oncology Service for thrombocythemia. She has been started on hydroxyurea . A 2D echocardiogram on 06/08/2018 showed left ventricular ejection fraction of 50-55% and E/A flow re versal, suggestive of diastolic dysfunction. On the day of discharge, she has white count of 10,300, hemoglobin 12.4, platelet count 988,000. Dur ing this hospitalization, she had triglycerides 80, cholesterol 123, LDL cholesterol 72, and HDL chol esterol 35. She was evaluated by Rehabilitation Services. She is being discharged to [facility] or further management. She will need to follow up with her primary care provider as well as with Hem atology/hvac specialist. Many thanks for allowing me to participate in your patient's care. Please feel free to contact me wi th any questions or concerns. DISCHARGE DESTINATION: [facility]. TOTAL AMOUNT OF TIME SPENT COORDINATING THIS DISCHARGE: Thirty five minutes.
== END 2018-06-10 19:30 | DRG 65 ==
LOC: ERS 17:34 → CCU 18:05 → 2SE 06-08 20:02
PROVIDERS: ADMIT Internal Medicine; ATTEND Internal Medicine
DX: I63.9 Cerebral infarction, unspecified (principal); G81.91 Hemiplegia, unspecified affecting right dominant side; R47.01 Aphasia; D69.6 Thrombocytopenia, unspecified; I16.0 Hypertensive urgency; E78.5 Hyperlipidemia, unspecified; I73.9 Peripheral vascular disease, unspecified; R29.810 Facial weakness; M10.9 Gout, unspecified; Z79.02 Long term (current) use of antithrombotics/antiplatelets; I12.9 Hypertensive chronic kidney disease with stage 1 through stage 4 chronic kidney disease, or unspecified chronic kidney disease; N18.9 Chronic kidney disease, unspecified; Z87.891 Personal history of nicotine dependence; Z82.49 Family history of ischemic heart disease and other diseases of the circulatory system; Z80.1 Family history of malignant neoplasm of trachea, bronchus and lung
CPT/HCPCS: 36415; 70551; 80048; 80061; 80306; 81270; 85025; 86038; 86225; 88184; 93005; 93306; 94640; 96365; 96366; G8978-GP-CM; G8979-GP-CJ; G8987-GO-CK; G8988-GO-CI; G8996-GN-CJ; G8997-GN-CH; J1650; J7050; J7611; S0028